=== PATIENT | male | born 1985 | race Caucasian/White ===

== ENCOUNTER → 2019-08-29 16:51 | Outpatient (CLI) | payer OTHER, SELFPAY ==
[2019-08-29 16:14] VITALS: BMI 23.9
[2019-08-29 17:52] LABS: Erythrocyte Sedimentation Rate 5 mm/hr (0-15)
== END ==
PROVIDERS: Referring Provider Internal Medicine Cardiovascular Disease; Visit Provider Internal Medicine Cardiovascular Disease
DX: I31.9 Disease of pericardium, unspecified (principal)
CPT/HCPCS: 36415; 85652; 86141

== ENCOUNTER → 2019-08-30 08:55 | Outpatient (CLI) | payer OTHER, SELFPAY ==
[2019-08-29 16:14] VITALS: BMI 23.9
--- NOTE | 2019-08-30 08:57 | VDLE_ITS ---
Reason For Study: Shortness of breath Procedure LEFT Exam performed in department. GSV is normal. A preliminary report was called and/or faxed CFV is compressible, spontaneous, phasic, to AZIZA RN. competent, and demonstrates normal augmentation. FV is compressible, spontaneous, phasic, competent and demonstrates normal augmentation. POP V is compressible, spontaneous, phasic, competent and demonstrates normal augmentation. T/P Trunk is compressible. PTV is compressible. LT PerV is compressible. Interpretation Summary There is no evidence of left lower extremity deep vein thrombosis. Left great saphenous vein appears patent and compressible segmentally. Ordering Physician: Omid Estrada Performed By: Mirian Ng RVT and Student
--- NOTE | 2019-08-30 08:57 | ECHOD_ITS ---
Reason For Study: Pericarditis Procedure This was a 2D Doppler, Color Flow transthoracic echocardiogram. Exam performed in department. Left Ventricle Normal LV size. Left ventricular systolic function is normal. The estimated ejection fraction is 60 %. No regional wall motion abnormalities noted. Right Ventricle Normal RV size. Normal systolic function. Atria Normal left atrium. Normal right atrium. Mitral Valve Normal mitral valve. Tricuspid Valve Normal tricuspid valve. Mild tricuspid valve insufficiency. Aortic Valve Normal aortic valve. Trisinus/trileaflet aortic valve. Great Vessels Normal aortic root. The pulmonary artery is normal size. Normal inferior vena cava. Pericardium/Pleural No pericardial effusion. MMode/2D Measurements & Calculations LVIDd: 5.2 cm IVSd: 0.98 cm Ao root diam: 2.4 cm LVIDs: 3.6 cm LVPWd: 0.99 cm RVDd: 3.6 cm FS: 30.7 % LAV(MOD-bp): 22.1 ml LVAd ap4: 33.2 cm2 SV(MOD-sp4): 67.2 ml LAV(MOD-bp) Indexed: 11.3 ml/m2 EDV(MOD-sp4): 103.2 ml LAV(MOD-sp2): 30.1 ml EDV(sp4-el): 106.4 ml LAV(MOD-sp4): 16.2 ml LVAs ap4: 17.7 cm2 ESV(MOD-sp4): 36.1 ml ESV(sp4-el): 36.6 ml EF(MOD-sp4): 65.1 % EF(sp4-el): 65.6 % SV(sp4-el): 69.8 ml LA dimension(2D): 2.8 cm LA A4 area: 9.8 cm2 RA A4 area: 13.5 cm2 Doppler Measurements & Calculations MV E max jayson: 62.6 cm/sec Lat Peak E' Jayson: 12.4 cm/sec Med Peak E' Jayson: 11.2 cm/sec MV A max jayson: 43.4 cm/sec E/E' lat: 5.0 E/E' med: 5.6 MV E/A: 1.4 Ao V2 max: 111.4 cm/sec LV V1 max: 88.7 cm/sec PA V2 max: 98.2 cm/sec Ao max P.0 mmHg LV V1 max P.1 mmHg Ao V2 mean: 81.0 cm/sec Ao mean P.9 mmHg Ao V2 VTI: 22.8 cm TR max jayson: 227.7 cm/sec TR max P.7 mmHg Interpretation Summary Normal LV size. Left ventricular systolic function is normal. The estimated ejection fraction is 60 %. Structurally normal valves. Ordering Physician: Omid Estrada Referring Physician: Omid Estrada Performed By: Daniella Holt, CARMEN, RVT
[2019-08-30 09:21] LABS: D-Dimer Quantitative (DVT/PE) <= 0.27 FEU/ug/m (0.27-0.49)
== END ==
PROVIDERS: Referring Provider Internal Medicine Cardiovascular Disease; Visit Provider Internal Medicine Cardiovascular Disease
DX: I31.9 Disease of pericardium, unspecified (principal); I45.6 Pre-excitation syndrome; R07.9 Chest pain, unspecified; R53.83 Other fatigue; R42 Dizziness and giddiness; R06.00 Dyspnea, unspecified; R10.32 Left lower quadrant pain
CPT/HCPCS: 36415; 85379; 93306; 93971

== ENCOUNTER → 2019-08-31 13:03 | Outpatient (CLI) | payer OTHER, SELFPAY ==
[2019-08-29 16:14] VITALS: BMI 23.9
[2019-09-01 07:12] LABS: SARS-COV-2 TOTAL ABS Nonreactive (Nonreactive)
== END ==
PROVIDERS: Referring Provider Internal Medicine Cardiovascular Disease; Visit Provider Internal Medicine Cardiovascular Disease
DX: R53.83 Other fatigue (principal); R42 Dizziness and giddiness; R07.9 Chest pain, unspecified; R06.00 Dyspnea, unspecified; I45.6 Pre-excitation syndrome
CPT/HCPCS: 86769; 87635; G2023; U0003

== ENCOUNTER 2019-09-08 16:50 | Emergency (ER) | payer OTHER, SELFPAY ==
[2019-08-29 16:14] VITALS: BMI 23.9
[2019-09-08 16:52] VITALS: BP 154/111; PULSE 84; RESP 18; TEMP 36.8; O2SAT 98; BMI 23.4
--- NOTE | 2019-09-08 17:30 | EKG12_ITS ---
Test Reason : INTERMITTENT CP Blood Pressure : / mmHG Vent. Rate : 067 BPM Atrial Rate : 067 BPM P-R Int : 150 ms QRS Dur : 098 ms QT Int : 372 ms P-R-T Axes : 057 075 062 degrees QTc Int : 393 ms Normal sinus rhythm Normal ECG Confirmed by DELIA DOYLE, CHAPARRO ([id number]), editor book MARCELA RAMIREZ ([id number]) on 09/10/2019 1:16:57 PM Referred By: KATINA/EDIS Confirmed By:CHAPARRO LIN MD
--- NOTE | 2019-09-08 18:20 | CT_ITS ---
STUDY: CT ABDOMEN AND PELVIS WITH CONTRAST REASON FOR EXAM: Male, 33 years old. LUQ PAIN AND NAUSEA X 1 1/2 MONTHS,SOB WITH EXERTION -- CHEST AND NECK PAIN SINCE JULY -- HX:[id number] RADIATION DOSAGE (If Supplied By Facility): CTDIvol = ( 12.46 ) mGy, DLP = ( 1042.92 ) mGycm TECHNIQUE: Transaxial images were obtained from the dome of the diaphragm to the symphysis pubis without oral contrast. IV 100mL Isovue-370 was administered. Sagittal and coronal images were reconstructed. Individualized dose optimization techniques were used for this CT. COMPARISON: None. FINDINGS: The visualized lung bases are unremarkable. The visualized portions of the heart are within normal limits. Normal liver. Normal gallbladder and extrahepatic biliary system. Normal spleen. Normal pancreas. Normal bilateral adrenal glands. Normal right kidney. Normal left kidney. Normal visualized stomach. Normal small intestine. Normal colon. The appendix is visualized and appears normal. Normal abdominal aorta. Normal inferior vena cava. Normal retroperitoneum. Normal urinary bladder. Normal abdominal wall. Normal osseous structures. CT/Abdomen/Pelvis WITH Contrast IMPRESSION: No CT evidence of acute abdominopelvic pathology. No evidence of appendicitis, acute intestinal pathology, or acute obstructive uropathy. Electronically Signed: Vic Keith MD at 19:36 EDT Tel , Service support ,
--- NOTE | 2019-09-08 18:21 | CT_ITS ---
STUDY: CTA CHEST REASON FOR EXAM: Male, 33 years old. LUQ PAIN AND NAUSEA X 1 1/2 MONTHS,SOB WITH EXERTION -- CHEST AND NECK PAIN SINCE JULY -- HX:[id number]-SYNDROME RADIATION DOSAGE (If Supplied By Facility): CTDIvol = ( 12.46 ) mGy, DLP = ( 1042.92 ) mGycm TECHNIQUE: The examination was performed with the intravenous administration of IV 100mL Isovue-370. Post-processing of the angiographic images was performed, with multiplanar reformation and 3D reconstruction. Individualized dose optimization techniques were used for this CT. COMPARISON: None. FINDINGS: Normal enhancement of the main pulmonary artery and right and left pulmonary arteries. Normal enhancement of the bilateral peripheral pulmonary arteries. There is no demonstrated pulmonary embolism. Normal thoracic aorta and visualized great vessels. There is no demonstrated aortic dissection. Normal heart and pericardium. Normal mediastinum. Normal hilar regions. Normal visualized trachea and bronchi. The lungs are well expanded. Normal pulmonary parenchyma. Normal pleura. Normal chest wall structures. Normal osseous structures. Normal visualized upper abdomen. CT/CTA Chest W/WO Contrast IMPRESSION: Normal CTA chest examination, without a demonstrated pulmonary embolism or aortic dissection. Electronically Signed: Vic Keith MD at 19:34 EDT Tel , Service support ,
--- NOTE | 2019-09-08 18:29 | ED.DCSUM_ITS ---
History of Present Illness Chief Complaint: Abd Pain Informant: Patient Narrative: Patient is a 33-year-old previously healthy male who presents to the emergency department for left-sided upper quadrant abdominal pain/lower sided left rib/chest pain. This is been going on for multiple weeks. He initially went to an emergency department at the onset of his symptoms. He states that he was not doing anything out of the ordinary when he had developed left chest stabbing pain. He had a cardiac work-up at that time. He got a GI cocktail and said he felt better at that time but the symptoms returned the next day. He states it has been a dull pain every single day. The pain does occasionally radiate straight into his back on the left side. No known aggravating factors or relieving factors. Does have a chest tightness sensation when he does take a deep breath in. He does feel short of breath especially whenever he is exerting himself. He has not been sick through any of this with any fever/chills. No cough, cold, congestion. He did have a negative COVID test. He did see a ca rdiologist who performed an echocardiogram which he states was normal. He was to follow-up with his biomedical scientist in the next week but he had repeat symptoms. His pain got to an 8 out of 10 in the same spot in the left lower ribs. He currently states that the pain is a 6 out of 10. He has been taking Naprosyn twice a day from his PCP which has not really been helping. He does feel like he gets nauseous occasionally but no episodes of vomiting. No changes in bowel habits. No urinary symptoms. He was scheduled to have a CT scan as an outpatient but could not make it till that time due to the pain. He has not had any leg swelling or calf pain. He denies smoking, drinking or drug abuse. Past Medical History - Allergies and Home Meds Allergies/Adverse Reactions: Allergies No Known Allergies Allergy (Unverified 09/08/19 16:59) Primary Care Physician: ROGERIO COLIN [Other] Prior records reviewed: Yes Past Medical History: None Surgical History: - - Previous facial reconstruction surgery Smoking Status: Never smoker Alcohol: None Drugs: None Review of Systems All systems negative except as indicated General: Reports: - - Fatigue. Denies: Chills, Fever, Sweats Eyes: Denies: Visual changes - bilaterally, Diplopia ENT: Denies: Rhinorrhea, Sore throat Cardiovascular: Reports: Chest pain. Denies: Palpitations Respiratory: Reports: Dyspnea. Denies: Cough, Dyspnea on exertion Gastrointestinal: Reports: Abdominal pain, Nausea. Denies: Vomiting, Diarrhea, Melena, Hematochezia Genitourinary: Denies: Dysuria, Hematuria, Frequency Musculoskeletal: Reports: Back pain. Denies: Extremity Pain Skin: Denies: Rash, Wounds Neurological: Denies: Headache, Weakness, Numbness Physical Exam Vital Signs/Narrative: Vital Signs Temp Pulse Resp BP Pulse Ox 09/08/19 16:52 98.2 F 84 18 154/111 H 98 Inital Vital Signs reviewed: Yes General: Well nourished, Well developed, No Acute Distress Head: Normocephalic, Atraumatic Eyes: Perrl, EOMI ENT: Moist mucous membranes, No rhinorrhea Neck: Supple, Nontender Cardiovascular: Regular rate, Regular rhythm, No murmurs Respiratory: No distress, CTA bilaterally, Chest nontender Abdomen: Soft, Nontender, Nondistended, Normal bowel sounds Back: Nontender, Normal Inspection. Negative for: CVA tenderness, Spinal tenderness Extremities: Nontender, No edema. Negative for: Edema, Calf Tenderness Skin: Normal color, No rash Neurological: Alert, Oriented x3, Cranial nerves II-XII grossly intact, Normal Strength, Normal Sensation Psychological: Normal affect, Normal Mood Diagnostic/Tx/Re-eval - EKG Initial EKG Interpretation: - - Rate of 67 bpm and normal sinus rhythm. Normal intervals. Normal axis. No ST elevations or depressions appreciated. No T wave abnormalities. No prior EKG for comparison. - Medical Decision Making Patient presents to the [facility] department for left lower chest/upper abdominal pain. He was scheduled to have a CT scan as an outpatient but had worsening natalie n. His symptoms have been going on for multiple weeks to months. We will check basic lab work here and do the CT scan at this time. Since the GI cocktail helped previously we will repeat this now. Otherwise physical exam is benign and he is in no acute distress. Vital signs within normal limits. Lab work-up did not reveal any significant acute abnormality. CT scans did not show any acute abnormality in the chest, abdomen or pelvis. No evidence of pulmonary embolism. He did get good relief with a GI cocktail again. Will prescribe him Carafate a treatment at home. Will recommend he follows up with a GI doctor as well as his biomedical scientist. Will discharge home in stable condition at this time. Warning signs and symptoms for which to return to the [facility] department are reviewed with him. He understands and is agreeable to this plan. ED Disposition - Plan for ED Patient: Disposition: Home or Assisted Living Diagnosis: Chest pain, Fatigue, Dyspnea, Abdominal pain Instructions: ED Chest Pain Atypical Unkn Cause, ED Unknown Causes of Abdominal Pain Male Prescriptions: Sucralfate [Carafate] 1 gm PO 4X/DAY PRN #30 tab PRN Reason: Pain Score 1-10/10 Transmission Status: Received by [facility] BR[id number] Referrals: ROGERIO COLIN [Other]
[2019-09-08] MEDS: Mag Hydrox/Al Hydrox/Simeth 30 ML UDC PO (18:41)
[2019-09-08 18:43] LABS: Absolute Lymphocyte Count 1.67 X10^3/uL (0.83-4.51); Absolute Neutrophil Count 8.2 X10^3/uL (2.0-7.7); Basophil# 0.03 X10^3/uL; Basophil% 0.3 % (0-1); Eosinophil# 0.11 X10^3/uL; Hematocrit 45.4 % (40-54); Hemoglobin 15.7 g/dL (13.0-16.5); Lymphocyte # 1.67 X10^3/ul (4.0); Lymphocyte % 15.4 % (19-41); Mean Corp Hgb Conc 34.6 g/dL (32-36); Mean Corpuscular Hgb 30.4 pg (27.0-32.0); Mean Platelet Vol. 9.3 fl (6.2-12.0); Monocyte# 0.78 X10^3/uL; Monocyte% 7.2 % (0-10); NRBC Flagged by Analyzer 0 % (0-5); Neutrophil # 8.24 X10^3/uL (2.7-7.7); Neutrophil % 75.7 % (47-70); Platelet Count 223 K/mm3 (150-450); RBC Distribution Width CV 11.8 % (11.6-14.6); RBC Distribution Width SD 37.9 fl (35.1-43.9); Red Blood Count 5.16 M/mm3 (4.6-6.2); White Blood Count 10.9 K/mm3 (4.4-11.0)
[2019-09-08 18:51] LABS: Internal QC Validated? YES +Cl - CLEAR BKGD
[2019-09-08 18:56] LABS: Monotest Negative (Negative)
[2019-09-08 19:04] LABS: ALB/GLOB Ratio 1.4 RATIO (0.9-2.4); AST(SGOT) 13 U/L (15-37); Alanine Aminotransfer ALT/SGPT 26 U/L (16-61); Albumin, Serum 4.6 g/dL (3.2-5.0); Alkaline Phosphatase 63 U/L (45-117); Anion Gap 3 (5-15); BUN 12 mg/dL (7-18); BUN/Creat Ratio 14.2 RATIO (10-20); Calcium,Total 9.2 mg/dL (8.5-10.1); Chloride 105 mmol/L (98-107); Creatinine, Serum 0.84 mg/dL (0.70-1.30); EST Glomerular Filtration Rate 112 mL/min (>60); Est Glom Filt Rate - Afr Amer 135 mL/min (>60); Estimated Creatinine Clearance 131.56 ml/min; Globulin 3.4 g/dL (2.2-4.2); Glucose 102 mg/dL (74-106); Lipase 150 U/L (73-393); Potassium 3.8 mmol/L (3.5-5.1); Sodium Level 139 mmol/L (136-145)
[2019-09-08 20:33] VITALS: BP 133/91; PULSE 74; RESP 16; O2SAT 98
== END 2019-09-08 20:36 | disposition home or self-care (01) ==
PROVIDERS: Emergency Provider Emergency Medicine
DX: R10.12 Left upper quadrant pain (principal); R53.83 Other fatigue; R07.9 Chest pain, unspecified; R06.00 Dyspnea, unspecified
CPT/HCPCS: 71275; 74177; 80053; 83690; 84484; 85025; 86308; 93005; 99284; Q9967; A4216